=== PATIENT | male | born 1970 | race African-American/Black ===

== ENCOUNTER 2018-10-20 11:29 | Emergency (ER) | payer OTHER ==
[2018-10-20 11:51] VITALS: BP 174/120
[2018-10-20] MEDS ORDERED: BACL10TA PO (12:25)
[2018-10-20] MEDS ORDERED: PANT40TA3 PO (12:25)
--- NOTE | 2018-10-20 12:26 | PHYS DOC ---
Past History Past Medical History: No Pertinent History Past Surgical History: No Surgical History Alcohol Use: None Drug Use: None Adult General Chief Complaint Chief Complaint: SHORTNESS OF BREATH HPI HPI 48-year-old male presents with hiccups for more than 2 hours. The patient was eating breakfast when the hiccups started and they have not gone away. 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 Vietnamese is his second language. He has not had hiccups that would not go away before. He is feeling normal otherwise. He has no other complaints. Review of Systems Review of Systems Constitutional: Denies fever or chills [] Eyes: Denies change in visual acuity, redness, or eye pain [] HENT: Denies nasal congestion or sore throat [] Respiratory: Denies cough or shortness of breath. Hiccups[] Cardiovascular: No additional information not addressed in HPI [] GI: Denies abdominal pain, nausea, vomiting, bloody stools or diarrhea [] : Denies dysuria or hematuria [] Musculoskeletal: Denies back pain or joint pain [] Integument: Denies rash or skin lesions [] Neurologic: Denies headache, focal weakness or sensory changes [] Endocrine: Denies polyuria or polydipsia [] All other systems were reviewed and found to be within normal limits, except as documented in this note. Allergies Allergies Allergies Coded Allergies Type Severity Reaction Last Updated Verified No Known Drug Allergies 10/20/18 No Physical Exam Physical Exam Constitutional: Well developed, well nourished, no acute distress, non-toxic appearance. [] HENT: Normocephalic, atraumatic, bilateral external ears normal, oropharynx moist, no oral exudates, nose normal. [] Eyes: PERRLA, EOMI, conjunctiva normal, no discharge. [] Neck: Normal range of motion, no tenderness, supple, no stridor. [] Cardiovascular:Heart rate regular rhythm, no murmur [] Lungs & Thorax: Bilateral breath sounds clear to auscultation [] Abdomen: Bowel sounds normal, soft, no tenderness, no masses, no pulsatile masses. [] Skin: Warm, dry, no erythema, no rash. [] Back: No tenderness, no CVA tenderness. [] Extremities: No tenderness, no cyanosis, no clubbing, ROM intact, no edema. [] Neurologic: Alert and oriented X 3, normal motor function, normal sensory function, no focal deficits noted. [] Psychologic: Affect normal, judgement normal, mood normal. [] Current Patient Data Vital Signs Vital Signs Date Time Temp Pulse Resp B/P (MAP) Pulse Ox O2 Delivery O2 Flow Rate FiO2 10/20/18 11:51 98.5 111 19 98 Room Air EKG EKG [] Radiology/Procedures Radiology/Procedures [] Course & Med Decision Making Course & Med Decision Making Pertinent Labs and Imaging studies reviewed. (See chart for details) I will give the patient 20 mg of baclofen and 40 mg Protonix in the ED. I will discharge the patient on the same medications in case he needs them. He is stable for discharge at this time. [] Dragon Disclaimer Dragon Disclaimer This electronic medical record was generated, in whole or in part, using a voice recognition dictation system. Departure Departure: Impression: Primary Impression: Hiccups Disposition: 01 HOME, SELF-CARE Condition: STABLE Patient Instructions: Hiccups-Brief Scripts Pantoprazole Sodium (PROTONIX) 40 Mg Tablet.dr 1 TAB PO DAILY for GERD for 14 Days, #14 TAB 0 Refills Prov: ROVERTO CALDWELL DO 10/20/18 Baclofen (BACLOFEN) 10 Mg Tablet 10 MG PO TID PRN for HICCUPS MDD 30mg, #30 TAB 0 Refills Prov: ROVERTO CALDWELL DO 10/20/18 ROVERTO CALDWELL DO Oct 20, 2018 12:26
[2018-10-20] MEDS ORDERED: BACLOFEN 20 MG TABLET PO ONE (12:45)
[2018-10-20] MEDS ORDERED: PANTOPRAZOLE 40 MG TABLET. PO ONE (12:45)
== END 2018-10-20 12:41 | disposition home or self-care (01) ==
LOC: ER 11:29
DX: R06.6 Hiccough (principal)
CPT/HCPCS: 99283